=== PATIENT | female | born 1945 | race Caucasian/White ===

== ENCOUNTER 2023-11-14 10:05 | Emergency (ER) | payer MEDICARE, BC, SELFPAY ==
[2023-11-14 10:10] VITALS: BP 158/81
--- NOTE | 2023-11-14 11:08 | ED.GENMED ---
History of Present Illness
<Alda Obrien PA-C - Last Filed: 11/14/23 15:56>
General
Chief Complaint: Rectal Bleeding
Source: patient
Time Seen by Provider: 11/14/23 11:06
Nursing documentation reviewed up to this point in time: agreed with
Travel History
Have you had any contact with someone who has COVID-19?: No
Do you have any symptoms of coronavirus? Fever > 100 degrees, chills, cough, shortness of breath, sore throat, loss of taste or smell, muscle aches, or headache?: No
History of Present Illness
History of Present Illness:
78-year-old female past medical history of peripheral arterial disease, CAD, A-fib on Xarelto, IBS, colon polyps emergency department today with concerns of bloody diarrhea for the past few days and dizziness. Patient states that her episodes of
bloody diarrhea started on Saturday. She states that she had multiple visits of diarrhea each day, and she states that she had some episodes of just viola blood in clots with no diarrhea. She states that the blood was bright red at first, and then
the blood became darker. Patient states that her last episode of bloody diarrhea was 2 days ago. Patient states that she felt dizzy during this time but never actually had syncope. She states that she episode near syncope and had to lower herself
to the ground and then she was okay. Patient denies chest pain, shortness of breath, trouble with her vision, abdominal pain. Patient had a similar episode of 2019 in which she had to be hospitalized, and states that they did not find much on her
workup and she was discharged to follow-up with a GI specialist and see her. Patient states that she went to her GI specialist today, was seen by PA in the office who assessed patient and due to her dizziness, she was sent over to the emergency
department wheelchair to be assessed.
Past History
<Alda Obrien PA-C - Last Filed: 11/14/23 15:56>
Past History
ED Past Medical History: HTN, Hypercholesterolemia and Other (Factor V Leiden)
ED Past Surgical History: Cardiac (Cardiac catheterization 2000 in [place]-reportedly normal) and Gynecological
Social History
Tobacco: Non-smoker
Alcohol: None
Drug: None
Review of Systems
<Alda Obrien PA-C - Last Filed: 11/14/23 15:56>
Review of Systems
All Other Systems: ROS reviewed and negative except as documented in HPI and ROS
Phy Exam
<Alda Obrien PA-C - Last Filed: 11/14/23 15:56>
Physical Exam
Physical Exam:
General: Pt is awake and alert. No acute distress.
Skin: Warm, dry, and intact without rashes or lesions.
Head: Normocephalic, atraumatic.
Eyes: EOMs intact, PERRLA.
Cardiac: RRR with no murmurs, rubs, or gallops.
PV: Mild lower extremity edema. Pulses: DP and PT 2+ bilaterally.
Pulmonary: Lung sounds are clear in all lobes bilaterally without rales, rhonchi, or wheezes.
Abdomen: Abdomen is soft, symmetric, mild tenderness to palpation in lower abdominal quadrants. There are no visible lesions or scars.
Rectal: Normal rectal tone without lesions or masses. One external hemorrhoid noted that is not actively bleeding. Empty rectal vault.
Neuro: Patient is AAOx3. CN 2-12 intact. No involuntary movements noted. Good muscle bulk and tone. Strength 5/5 BUE/BLE. Finger to nose, heel to altamirano testing intact.
Course
<Alda Obrien PA-C - Last Filed: 11/14/23 15:56>
Orders/Labs/Results
Orders:
Orders
11/14/23 11:40
Electrocardiogram (*1) Urgent
Reason for Study: Vertigo / Dizzy
EKG- Treatment ONCE
11/14/23 12:02
Complete Blood Count/With Diff Urgent
Comprehensive Metabolic Panel Urgent
11/14/23 12:03
Type+Screen Urgent
11/14/23 13:02
0.9% Sodium Chloride 250 ml [Nss] 250 ml IV BOLUS
11/14/23 13:18
0.9% Sodium Chloride 500 ml [Nss] 500 ml IV BOLUS
11/14/23 14:08
Consult Gastroenterology [GASTROINTESTINAL CONSULT] Urgent
Consulting Provider: Alexus Ashley
Was physician already notified: Yes
Abnormal Lab Results
11/14/23
12:02
MCHC 32.4 L g/dL
(33.0-37.0)
Absolute Lymphs (auto) 1.1 L 10^3/uL
(1.2-3.4)
Lymphocytes % 16.4 L %
(20.5-51.1)
Glucose 102 H mg/dl
(70-99)
11/14/23 12:02
11/14/23 12:02
Vital Signs
Initial and Last Documented VS:
Initial Vital Signs
Temp Pulse Resp BP Pulse Ox
98.3 F 61 18 158/81 94
11/14/23 10:10 11/14/23 10:10 11/14/23 10:10 11/14/23 10:10 11/14/23 10:10
Last Documented Vital Signs
Temp Pulse Resp BP Pulse Ox
98.3 F 61 19 144/73 94
11/14/23 10:10 11/14/23 13:31 11/14/23 13:31 11/14/23 13:31 11/14/23 10:10
Larrylt;Ruben Elizabeth, DO - Last Filed: 11/14/23 15:57>
Orders/Labs/Results
Orders:
Orders
11/14/23 11:40
Electrocardiogram (*1) Urgent
Reason for Study: Vertigo / Dizzy
EKG- Treatment ONCE
11/14/23 12:02
Complete Blood Count/With Diff Urgent
Comprehensive Metabolic Panel Urgent
11/14/23 12:03
Type+Screen Urgent
11/14/23 13:02
0.9% Sodium Chloride 250 ml [Nss] 250 ml IV BOLUS
11/14/23 13:18
0.9% Sodium Chloride 500 ml [Nss] 500 ml IV BOLUS
11/14/23 14:08
Consult Gastroenterology [GASTROINTESTINAL CONSULT] Urgent
Consulting Provider: Alexus Ashley
Was physician already notified: Yes
Abnormal Lab Results
11/14/23
12:02
MCHC 32.4 L g/dL
(33.0-37.0)
Absolute Lymphs (auto) 1.1 L 10^3/uL
(1.2-3.4)
Lymphocytes % 16.4 L %
(20.5-51.1)
Glucose 102 H mg/dl
(70-99)
11/14/23 12:02
11/14/23 12:02
Vital Signs
Initial and Last Documented VS:
Initial Vital Signs
Temp Pulse Resp BP Pulse Ox
98.3 F 61 18 158/81 94
11/14/23 10:10 11/14/23 10:10 11/14/23 10:10 11/14/23 10:10 11/14/23 10:10
Last Documented Vital Signs
Temp Pulse Resp BP Pulse Ox
98.3 F 61 19 144/73 94
11/14/23 10:10 11/14/23 13:31 11/14/23 13:31 11/14/23 13:31 11/14/23 10:10
<Alda Obrien PA-C - Last Filed: 11/14/23 15:56>
MDM/Problems Addressed
Differential Diagnosis Includes:
Acute diarrheal illness, symptomatic bradycardia, dehydration, gastroenteritis, colitis, colon cancer
MDM/Problems Addressed:
rectal bleeding
dizziness
Chronic conditions affecting care: HTN, CAD, Arrhythmia and Previous abdomnial surgery
Acute Exacerbation and/or Progression of Chronic Illness: HTN and CAD
<Alda Obrien PA-C - Last Filed: 11/14/23 15:56>
*Pulse Oximetry
Patient hypoxic: no
*Critical Care Note
Total Time (30-74mins, 75-104mins- exclusive of procedures): Not Applicable
Data Reviewed
Review of Other/Old Records Reveals: Records
<Alda Obrien PA-C - Last Filed: 11/14/23 15:56>
Patient Management
Escalation/DeEscalation of care consider admission/obs:
78-year-old female past medical history of peripheral arterial disease, CAD, A-fib on Xarelto, IBS, colon polyps emergency department today with concerns of bloody diarrhea for the past few days and dizziness. Patient states that her episodes of
bloody diarrhea started on Saturday. Patient's last episode of bloody diarrhea was on Saturday. Patient states that she has no abdominal pain, no chest pain. Physical exam, she has mild lower abdominal tenderness palpation, she has no rectal
bleeding, and vault. Patient was given half a liter of IV fluids, after these were finished, patient states that her symptoms significantly improved and she states that she feels much better than when she originally came here. Patient states that
she has been having trouble with disability rater dizziness, but states that it will usually resolve in the evening after she drinks water. Patient will follow-up with her primary care provider on this issue.
Patient's supervisor [employer] was on-call today and was consulted, she saw patient who feels that she does not need admission and she will set up an appointment for her to set up a colonoscopy in light of patient's recent bleeding episodes. Patient
medically stable for discharge at this time.
ED Attending Note
<Alda Obrien PA-C - Last Filed: 11/14/23 15:56>
-
Portions of this chart may have been created with voice recognition software.� Occasional wrong word or��sound alike� substitutions may have occurred due to the inherent limitations of voice recognition software.
<Ruben Elizabeth DO - Last Filed: 11/14/23 15:57>
ED Attending Note
Patient seen and examined by attending physician: Yes
I performed a history and physical exam of patient and discussed management with resident, I reviewed resident's note and agree with documented findings and plan of care.: Yes
ED Attending Note:
I have reviewed and agree with patient treatment plan by Alda Obrien. My exam revealed
Physical Exam
General: no apparent distress, not acutely ill
Neck: supple. no meningeal signs. normal posterior pharynx
Heart: equal radial pulses.
HEENT: Pupils equal round reactive to light, EOMI
Lungs: no acute respiratory distress.
Abdomen: normal bowel sounds. Mild left lower quadrant tenderness. Patient states this is chronic no CVAT
Neuro: alert and oriented. no focal neurological deficits
Skin: no rash
Psychiatric: well kept. interactive and cooperative
Extremities: no edema. no calf tenderness. negative homans. good distal pulses
Rectal exam was guaiac negative. Hemoglobin 14. Do not suspect ACS or dysrhythmia. No dizziness. Seen by Dr. Ashley, will follow-up as outpatient. Patient stable for discharge.
Discharge Plan
Departure
Patient Disposition: Home (Routine Discharge)
Date of Disposition: 11/14/23
Time of Disposition: 15:50
Patient with high blood pressure during this ER visit?: Yes
Condition: Good
Discharge Problem:
Dizziness, History of rectal bleeding
Instructions: Gastrointestinal Bleeding (DC), Dizziness
Prescriptions:
No Action
propranolol 60 MG capsule,extended release 24 hr
60 mg PO BID
rosuvastatin [Crestor] 40 MG tablet
40 mg PO HS
acetaminophen [Tylenol Extra Strength] 500 MG tablet
500 mg PO Q6HPRN PRN (Reason: mild pain)
benazepril 40 MG tablet
40 mg PO HS Qty: 0 0RF
Elderberry Gummy
2 gummy PO HS
famotidine 40 mg Tablet
40 mg PO HS
potassium chloride 20 mEq Tablet Extended Release
20 meq PO DAILY
amlodipine 5 MG tablet
5 mg PO HS
Xarelto 20 MG tablet
20 mg PO HS
aspirin 81 mg Tablet,Delayed Release (Dr/Ec)
81 mg PO DAILY
cyanocobalamin (vitamin B-12) 500 mcg Tablet
500 mcg PO DAILY
hyoscyamine sulfate 0.125 mg Tablet, Sublingual
0.125 mg PO TIDPRN PRN (Reason: IBS)
hydrochlorothiazide 12.5 mg Capsule
12.5 mg PO DAILY
ergocalciferol (vitamin D2) 1,250 mcg (50,000 unit) Capsule
1,250 mcg PO YANES@0800
fluticasone propionate 50 mcg/actuation [place],Suspension
1 spray INTRANASAL BID
pantoprazole 40 mg tablet,delayed release (DR/EC)
40 mg PO DAILY
potassium chloride 20 mEq Tablet Extended Release
40 meq PO .SEE BELOW PRN (Reason: feeling sick)
Patient Comments:
11/14/2023, per pt., when she is feeling sick she will take 2 tablets in the morning. This med. is prescribed for her to take one tablet daily.
Referrals:
Luiza Arguello DO [Family Provider] -
Activity Restrictions/Additional Instructions:
Please follow up with Dr. Ashley as discussed.
Please follow up with your primary care provider.
Please continue to stay well hydrated.
Return to the emergency department should you experience chest pain, shortness of breath, fainting spells, or other concerning signs or symptoms.
Interventions
Interventions:
*Risk Screen - Suicide Last Done: 11/14/23 11:47
*General Assessment Last Done: 11/14/23 11:47
*Neglect/Abuse Screening Last Done: 11/14/23 11:47
ED- Fall Risk Assessment Last Done: 11/14/23 11:47
*ED COVID-19 Vaccine History Last Done: 11/14/23 10:12
VK-Kwydft-Sejbrdpvkh Assessment Last Done: 11/14/23 11:47
ED- Cardiac Assessment Last Done: 11/14/23 11:47
ED- Pulmonary Assessment Last Done: 11/14/23 11:47
[2023-11-14 11:25] VITALS: BP 148/76
[2023-11-14 11:47] VITALS: BMI 38.9
[2023-11-14 12:04] VITALS: BP 136/57
[2023-11-14 12:25] LABS: % Basophils 0.6 % (0-2); % Eosinophils 1.5 % (0-6); % Immature Granulocytes 0.2 % (0-0.5); % Lymphocytes 16.4 % (20.5-51.1); % Monocytes 7.3 % (1.7-9.3); Absolute Eosinophils 0.1 10^3/uL (0-0.7); Absolute Lymphocytes 1.1 10^3/uL (1.2-3.4); Absolute Monocytes 0.5 10^3/uL (0.1-0.6); Absolute Neutrophils 4.8 10^3/uL (1.4-6.5); Hematocrit 44.7 % (37.0-47.0); Hemoglobin 14.5 g/dL (12.0-16.0); Mean Corp Hgb Conc. 32.4 g/dL (33.0-37.0); Mean Corpuscular Hgb 27.9 pg (27.0-31.0); Nucleated Red Blood Cells % 0 %; Platelet Count 258 10^3/uL (130-400); Red Cell Dist. Width 13.8 % (11.5-14.5); White Blood Cell Count 6.5 10^3/uL (4.8-10.8)
[2023-11-14 12:46] LABS: ALT (SGPT) 17 U/L (0-35); AST (SGOT) 22 U/L (14-36); Albumin 4.3 g/dl (3.5-5.0); Alkaline Phosphatase 99 U/L (38-126); Blood Urea Nitrogen 16 mg/dl (7-17); Calcium 9.8 mg/dl (8.4-10.2); Carbon Dioxide 29 mmol/L (22-30); Chloride 100 mmol/L (98-107); Estimated Creatinine Clearance 70 ml/min; Glucose 102 mg/dl (70-99); Potassium 3.6 mmol/L (3.5-5.1); Sodium 139 mmol/L (135-145); Total Bilirubin 0.6 mg/dl (0.2-1.3); Total Protein 6.9 g/dl (6.3-8.2); eGFR > 60.00
[2023-11-14 13:31] VITALS: BP 144/73
[2023-11-14] MEDS: NSS 500 IV (13:31)
[2023-11-14 14:00] VITALS: BP 153/89
--- NOTE | 2023-11-14 15:44 | W.PN.UPDATE ---
Update Note
Progress Note Update
Gracie is a 78yoF with hx pAFib on Xarelto status post ablation, adrenal adenoma, bladder CA, GERD, Chronic IBS-D, grade B esophagitis, hiatal hernia, hx colon adenomas, who was sent over by our office after the patient was complaining of feeling
like she was going to pass out which is common for her couple of times a year.
Overall she actually been doing well from a GI standpoint but on Saturday had a few episodes of brown diarrhea that eventually turned into some blood dripping into the toilet with occasional clot. That stopped, she had a small amount of wiping blood
on the toilet paper Saturday but no blood since.
Overall, she is hemodynamically stable with a hemoglobin of 14.5. Normal CBC and CMP otherwise. She is normotensive somewhat hypertensive and not tachycardic and in normal sinus rhythm.
She and I discussed plan. She will hydrate. Follow-up with cardiology and we will call her to set up an outpatient colonoscopy which she is due this year anyway
Patient is on Xarelto and will need to hold for 2 days prior to the procedure which will remind her upon calling
Okay for discharge from a GI perspective
== END 2023-11-14 16:28 | disposition home or self-care (01) ==
LOC: EMR 10:05
PROVIDERS: Physician Assistant; CONSULT PHYSICIAN Internal Medicine; EMERGENCY PHYSICIAN Emergency Medicine; FAMILY PHYSICIAN Family Medicine
DX: R42 Dizziness and giddiness (principal); I10 Essential (primary) hypertension; I25.10 Atherosclerotic heart disease of native coronary artery without angina pectoris; I73.9 Peripheral vascular disease, unspecified; K58.0 Irritable bowel syndrome with diarrhea; Z79.01 Long term (current) use of anticoagulants
CPT/HCPCS: 99284; 96360; 80053; 85025; 86850; 86900; 86901; 93005

== ENCOUNTER → 2024-01-14 06:37 | Day surgery (SDC) | payer MEDICARE, BC, SELFPAY | LOC: GI 06:37 | PROVIDERS: ATTENDING PHYSICIAN Internal Medicine | DX: Z12.11 Encounter for screening for malignant neoplasm of colon (principal); K62.5 Hemorrhage of anus and rectum; K57.30 Diverticulosis of large intestine without perforation or abscess without bleeding; K64.9 Unspecified hemorrhoids; K63.89 Other specified diseases of intestine; D12.4 Benign neoplasm of descending colon; K63.5 Polyp of colon; K62.1 Rectal polyp; Z86.010 Personal history of colon polyps | CPT/HCPCS: 45385; 45380; 88305 ==

== ENCOUNTER → 2024-02-19 11:08 | Outpatient (REF) | payer MEDICARE, BC, SELFPAY | LOC: CLAB 11:08 | PROVIDERS: ATTENDING PHYSICIAN Specialist | DX: D49.4 Neoplasm of unspecified behavior of bladder (principal) | CPT/HCPCS: 88112 ==

== ENCOUNTER → 2024-02-19 14:53 | Outpatient (REF) | payer MEDICARE, BC, SELFPAY | LOC: RAD 14:53 | PROVIDERS: ATTENDING PHYSICIAN Surgery Vascular Surgery; FAMILY PHYSICIAN Family Medicine | DX: T81.718A Complication of other artery following a procedure, not elsewhere classified, initial encounter (principal); I72.4 Aneurysm of artery of lower extremity | CPT/HCPCS: 93922; 93925 ==

== ENCOUNTER → 2025-01-18 14:10 | Outpatient (REF) | payer MEDICARE, BC, SELFPAY | LOC: HWRCS 14:10 | PROVIDERS: ATTENDING PHYSICIAN Internal Medicine Cardiovascular Disease; FAMILY PHYSICIAN Family Medicine | DX: I48.0 Paroxysmal atrial fibrillation (principal); R06.00 Dyspnea, unspecified | CPT/HCPCS: 93306 ==

== ENCOUNTER → 2025-02-22 13:57 | Outpatient (REF) | payer MEDICARE, BC, SELFPAY | LOC: RAD 13:57 | PROVIDERS: ATTENDING PHYSICIAN Surgery Vascular Surgery; FAMILY PHYSICIAN Family Medicine | DX: I72.4 Aneurysm of artery of lower extremity (principal) | CPT/HCPCS: 93922; 93925 ==

== ENCOUNTER → 2025-02-23 13:46 | Outpatient (REF) | payer MEDICARE, BC, SELFPAY | LOC: CLAB 13:46 | PROVIDERS: ATTENDING PHYSICIAN Specialist | DX: C67.0 Malignant neoplasm of trigone of bladder (principal) | CPT/HCPCS: 88112 ==

== ENCOUNTER → 2025-03-04 13:52 | Outpatient (REF) | payer MEDICARE, BC, SELFPAY ==
--- NOTE | 2025-03-04 15:12 | CARDSERVLU ---
Echocardiogram with [facility] completed after protocol screening completed. Allergies verified.
Patent IV site: 22 g angio inserted in LAC
IV site flushed with 0.9% NaCl pre and post administration.
Diluted bolus method utilized to enhance visualization of ventricular edgar.
Total volume given: 6 mL
Patient tolerated all procedures well without complications.
--- NOTE | 2025-03-04 15:49 | PTCARENOTE ---
Pt walking to leave [facility] and felt lightheaded and nauseous, Pt had Echo with [facility]. Refer to Cardiac Services Record for full vitals and notes. Dr Scott in to see pt., pt feeling less lightheaded after few minutes. Resting on
stretcher. Denies any throat pain, denies SOB.
== END ==
LOC: RCS 13:52
PROVIDERS: ATTENDING PHYSICIAN Internal Medicine Cardiovascular Disease; FAMILY PHYSICIAN Family Medicine
DX: I48.0 Paroxysmal atrial fibrillation (principal); R06.00 Dyspnea, unspecified; I51.7 Cardiomegaly
CPT/HCPCS: 93306; Q9950